=== PATIENT | male | born 1980 | race Caucasian/White ===

== ENCOUNTER 2016-12-21 07:51 | Day surgery (SDC) | payer OTHER ==
[~2016-12-21] VITALS: Ht 180.3 cm; Wt 89.2 kg
[2016-12-21] VITALS (14 sets, daily range): BP systolic 99–117; BP diastolic 58–82; PULSE 50–70; RESP 12–25; Ht 180.3 cm; Wt 89.2 kg
[2016-12-21] MEDS ORDERED: CEFAZOLIN 2 GM/50 ML (PMX) 50 ML IVPB ONE (08:30)
[2016-12-21] MEDS ORDERED: SOD CHLORIDE 0.9% 1,000 ML IV ONE (08:30)
[2016-12-21] MEDS ORDERED: BUPIVACAINE 0.25% (MPF) 30 ML INJ ONE (10:50)
[2016-12-21] MEDS ORDERED: POLYMYXIN/BACITRACIN 1L IRRIG ONE (10:50)
[2016-12-21] MEDS ORDERED: MIDAZOLAM 1 MG/ML 2 ML INJ ONE (11:12)
[2016-12-21] MEDS ORDERED: NEOSTIGMINE 3 MG/3 ML SYRINGE ONE (12:05)
[2016-12-21] MEDS ORDERED: LIDOCAINE 2% (SDV) 5 ML INJ ONE (12:05)
[2016-12-21] MEDS ORDERED: PROPOFOL 20 ML ONE (12:05)
[2016-12-21] MEDS ORDERED: GLYCOPYRROLATE 0.4 MG INJ ONE (12:05)
[2016-12-21] MEDS ORDERED: ROCURONIUM 50 MG INJ ONE (12:05)
[2016-12-21] MEDS ORDERED: ONDANSETRON 4 MG INJ ONE ×2 (12:06→12:36)
[2016-12-21] MEDS ORDERED: CEFAZOLIN 1 GM INJ ONE (12:12)
--- NOTE | 2016-12-21 12:12 | OPR ---
Date/Time of Note Date/Time of Note DATE: 12/21/16 TIME: 12:09 Operative Report Procedure Date: Dec 21, 2016 Preoperative Diagnosis incarcerated right inguinal hernia Postoperative Diagnosis incarcerated direct right inguinal hernia Operation/Procedure Performed 1. open incarcerated right inguinal hernia repair with ultrapro hernia system mesh large 2. therapeutic injection of subcutaneous local anesthesia Surgeon see signature line Chief Internal Auditor none Anesthesia Type: general Estimated Blood Loss: 10 - 50 ml's Transfusion none Specimen none Grafts/Implants none Complications none Pt Condition Post Procedure: stable Indications This is a 36-year-old male with incarcerated right inguinal hernia. He requests surgical repair. Risks alternatives benefits and percent were discussed with the patient. Patient expressed understanding consents to the operation. Procedure Description Patient taken to the OR and prepped and draped in usual sterile fashion. Surgical timeout was performed. IV antibiotics were given. Right inguinal oblique incision was made with a 10 blade. Dissection cautery is carried down to the extremity fascia. The extremity fascia is open with a 15 blade. This incision is extended medially inferiorly lateral superiorly with Metzenbaum scissors. Cord structures are encircled with a Jaja drain. Incarcerated direct hernia is identified and reduced manually. This is bolstered with the distal portion of the ultrapure hernia system mesh. This is secured in place with a running 0 Prolene from the pubic tubercle along the shelving of the inguinal ligament. And superior to intra-oblique with interrupted 3-0 Vicryl. [place] mesh is secured in a similar fashion with a running 0 Prolene from the pubic tubercle along the shelving edge of the inguinal ligament. Superiorly to intra-oblique the only mesh is secured with interrupted 3-0 Vicryl. Extremity fascia is closed with running 3-0 Vicryl. Cecy's fascia was closed with interrupted 3-0 Vicryl. Skin is closed using skin yanelis. Therapeutic subcutaneous local anesthesia was injected throughout the incision site. Dressings were applied. Lina WHELAN Dec 21, 2016 12:12
[2016-12-21] MEDS ORDERED: HYDROmorphONE (0.2 MG/ML) 10ML SYG IV PRN ×2 (12:30)
[2016-12-21] MEDS ORDERED: ONDANSETRON 4 MG INJ IV PRN (12:30)
[2016-12-21] MEDS ORDERED: METOCLOPRAMIDE 10 MG INJ IV PRN (12:30)
[2016-12-21] MEDS ORDERED: FENTAnyl 50 MCG/ML VIAL IV PRN (12:30)
[2016-12-21] MEDS ORDERED: HYDROCODONE/APAP (5/325) TAB PO ONE (12:30)
[2016-12-21] MEDS ORDERED: MEPERIDINE 25 MG INJ IV PRN (12:30)
[2016-12-21] MEDS ORDERED: KETOROLAC 30 MG INJ IV PRN (12:30)
[2016-12-21] MEDS ORDERED: DIPHENHYDRAMINE 50 MG INJ IV PRN (12:30)
[2016-12-21] MEDS ORDERED: MEPERIDINE 25 MG INJ ONE (12:36)
--- NOTE | 2016-12-21 16:56 | RADRPT ---
Vent Rate: 64 bpm RR Interval: 0 msec [place] Interval: 150 msec QRS Duration: 92 msec QT Interval: 386 msec QTC Interval: 398 msec P-R-T [place]: 51 - 45 - 46 degrees Normal sinus rhythm Normal ECG Electronically Signed By: Garrick Benavidez [id number]
== END 2016-12-21 14:22 | disposition home or self-care (01) ==
LOC: SDS 07:51
PROVIDERS: ATTEND Surgery
DX: K40.90 Unilateral inguinal hernia, without obstruction or gangrene, not specified as recurrent (principal)
CPT/HCPCS: 49507; 93005; C1781; J0690; J1885; J2175; J2250; J2405; J2710; J3010; Z7512; Z7610